=== PATIENT | male | born 1945 | race Caucasian/White ===

== ENCOUNTER 2019-09-30 11:01 | Day surgery (SDC) | payer OTHER, BC ==
[2019-09-27 15:54] VITALS: BMI 23.0
[~2019-09-30 11:01] MED LIST: BUPIVACAINE HCL/PF 0.25% (2.5MG/ML) 10 ML VIAL IJ ONE
[2019-09-30] MEDS ORDERED: ONDANSETRON 4 MG/2 ML VIAL IVPUSH PRN (11:34)
[2019-09-30] MEDS ORDERED: oxyCODONE HCL 5 MG TABLET PO PRN (11:34)
[2019-09-30] MEDS ORDERED: ACETAMINOPHEN 325 MG TABLET (FP) PO PRN (11:34)
[2019-09-30] MEDS ORDERED: KETOROLAC TROMETHAMINE 30 MG/1 ML VIAL ONE (15:09)
[2019-09-30] MEDS ORDERED: DEXAMETHASONE SOD PHOSPHATE 4 MG/1 ML VIAL ONE (15:09)
[2019-09-30] MEDS ORDERED: ONDANSETRON 4 MG/2 ML VIAL ONE (15:09)
[2019-09-30] MEDS ORDERED: ceFAZolin SODIUM 1 GM VIAL ONE (15:10)
[2019-09-30] MEDS ORDERED: BUPIVACAINE HCL/PF 0.25% (2.5MG/ML) 10 ML VIAL IJ ONE (15:45)
[2019-09-30] MEDS ORDERED: MEPERIDINE HCL 50 MG/ML VIAL ONE (16:05)
[2019-09-30] MEDS ORDERED: MEPERIDINE HCL 25 MG/ML VIAL IVPUSH ONE (16:07)
[2019-09-30 18:03] VITALS: BP 130/72; PULSE 64; TEMP 98
--- NOTE | 2019-10-03 09:40 | OP ---
DATE OF OPERATION: 09/30/2019 Surgery done at [place] SURGEON: Darwin Montejo MD AUTOMATION QA TESTER: SUMAN Blackwood PREOPERATIVE DIAGNOSES: 1. Left knee medial and lateral meniscal tear. 2. Left knee cartilage injury. 3. Left knee synovitis. POSTOPERATIVE DIAGNOSES: 1. Left knee medial and lateral meniscal tear. 2. Left knee cartilage injury. 3. Left knee synovitis. PROCEDURE: 1. Left knee arthroscopy with partial meniscectomy, medial and lateral meniscus, CPT code 61434. 2. Left knee arthroscopy with chondroplasty and abrasion-plasty, CPT code 21451. 3. Left knee arthroscopy with synovectomy, CPT code 53991. FINDINGS: 1. Medial meniscus [id number] horn tear. 2. 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 3. Synovitis patellofemoral medial and lateral notch area. 4. Anterior grade 1-2 cartilage injury anterior medial femoral condyle and tibial plateau. 5. ACL and PCL intact. 6. Minimal cartilage change lateral joint line. 7. Central grade 2-3 cartilage injury superior pole of patella with grade 4 changes lateral facet and 2-3 changes central patellofemoral trochlea. PROCEDURE: Informed consent was obtained. The patient came to the operating room, where the lower extremity was prepped and draped in a sterile fashion. A tourniquet was placed on the upper thigh, but not inflated. Using standard arthroscopic technique, a lateral incision and portal was made to allow for introduction of the camera into the suprapatellar bursa. This was then taken to the medial joint line, where under direct visualization, a medial incision and portal was made. Excessive synovium noted in the medial, lateral and patellofemoral and notch area was removed by an upbiter, shaver and Bovie cautery. This was found to bring in inflammatory tissue into the joint surface, a source of pain and dysfunction. Probing of the medial and lateral meniscus found tears, as described in the findings. These were removed with the upbiter and shaver and taken back to a stable rim. Grade 2 to 3 degenerative changes were treated with a chondroplasty, removing all flaking surfaces with low-setting Bovie along the periphery to prevent further flaking. Grade 4 changes, as noted, were treated with an abrasoplasty, creating a bleeding surface at the bone/cartilage interface. Aggressive debridement with shaver/ofelia created bleeding surface. Micro fracture also done when indicated in findings. All areas of the knee were once again reexamined. The knee was then drained and a single suture was placed in all portals. A sterile dressing was placed and the patient was transferred to the recovery room without complication. The PA listed above was present and assisted at surgery. Their presence was absolutely medically necessary for the completion of the procedure. They helped hold the arthroscopy, pass instruments (and implants when indicated) and the procedure could not have been completed without their assistance. DARWIN MONTEJO M.D. [id number]
--- NOTE | 2019-10-05 13:39 | PATH ---
Surgical Pathology Report Patient Name: JOSEPH LOPES Med. Rec. #: [id number] /Age/Gender: 1945 (Age: 74) / M Account: [id number] Location: [facility] AMBULATORY Taken: 09/30/2019 Received: 09/30/2019 Reported: 10/05/2019 Physicians: Darwin Lyon M.D. Specimen(s) Received LEFT KNEE SHAVINGS Clinical History Internal derangement left knee Final Diagnosis KNEE, LEFT, ARTHROSCOPIC SHAVINGS: CARTILAGE, FIBROCOLLAGENOUS AND FIBROSYNOVIAL TISSUE. Electronically Signed Vandana Suresh M.D. Gross Description Received in formalin, labeled "left knee shaving," is a 4.5 x 4.5 x 0.3 cm. aggregate of potter-yellow soft tissue fragments. A education courses sales representative portion is submitted in one cassette. 10/03/201910/03/2019
== END 2019-09-30 18:03 | disposition home or self-care (01) ==
LOC: FASU 11:01
PROVIDERS: ATTEND Orthopaedic Surgery
PROC: 0SBD4ZZ Excision of Left Knee Joint, Percutaneous Endoscopic Approach (ICD-10-PCS; 2019-09-30)
PROC: 0SBD4ZZ Excision of Left Knee Joint, Percutaneous Endoscopic Approach (ICD-10-PCS; 2019-09-30)
PROC: 0SBD4ZZ Excision of Left Knee Joint, Percutaneous Endoscopic Approach (ICD-10-PCS; principal; 2019-09-30 15:21)
DX: S83.242A Other tear of medial meniscus, current injury, left knee, initial encounter (principal); S83.282A Other tear of lateral meniscus, current injury, left knee, initial encounter; S83.8X2A Sprain of other specified parts of left knee, initial encounter; M65.862 Other synovitis and tenosynovitis, left lower leg; X58.XXXA Exposure to other specified factors, initial encounter; Y93.9 Activity, unspecified; Y92.9 Unspecified place or not applicable
CPT/HCPCS: 88304-TC; 94760; J2175